=== PATIENT | female | born 1985 | race Caucasian/White ===

== ENCOUNTER 2017-10-14 09:20 | Emergency (ER) | payer MEDICAID | END 2017-10-14 11:29 | disposition home or self-care (01) | LOC: E/R 09:20 | DX: J02.9 Acute pharyngitis, unspecified (principal) | CPT/HCPCS: 99283; Z7502 ==

== ENCOUNTER 2017-10-23 12:34 | Emergency (ER) | payer MEDICAID | END 2017-10-23 15:13 | disposition home or self-care (01) | LOC: FTE 12:34 | DX: J32.9 Chronic sinusitis, unspecified (principal); R42 Dizziness and giddiness | CPT/HCPCS: 99284; Z7502 ==

== ENCOUNTER 2018-06-28 10:36 | Emergency (ER) | payer MEDICAID ==
[2018-06-28 13:18] LABS: URINE BLOOD (Dip) POC 2+ (NEGATIVE); URINE GLUCOSE (Dip) POC Negative (NEGATIVE); URINE KETONES (Dip) POC Negative (NEGATIVE); URINE LEUKOCYTE EST (Dip) POC Trace (NEGATIVE); URINE NITRITE (Dip) POC Negative (NEGATIVE); URINE TOTAL PROTEIN POC Trace (NEGATIVE)
[2018-06-28 13:18] LABS: URINE PH (Dip) POC 6.5 (5.0-8.5)
[2018-06-28] MEDS: ONDANSETRON (ODT) 4 MG TAB ODT (13:20)
[2018-06-28] MEDS: HYDROCODONE/APAP (5/325) TAB PO (13:20)
== END 2018-06-28 14:32 | disposition home or self-care (01) ==
LOC: FTE 10:36
DX: R51 Headache (principal)
CPT/HCPCS: 70450; 81003; 81025; 99284-25

== ENCOUNTER 2018-08-01 15:21 | Emergency (ER) | payer MEDICAID | END 2018-08-01 16:34 | disposition home or self-care (01) | LOC: FTE 15:21 | DX: J03.90 Acute tonsillitis, unspecified (principal) | CPT/HCPCS: 99283; Z7502 ==

== ENCOUNTER 2019-02-21 15:18 | Emergency (ER) | payer SELFPAY, MEDICAID | END 2019-02-21 15:53 | disposition home or self-care (01) | LOC: FTE 15:18 | DX: J02.9 Acute pharyngitis, unspecified (principal) | CPT/HCPCS: 99283 ==